=== PATIENT | female | born 1995 | race African-American/Black ===

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

== ENCOUNTER 2017-07-02 22:10 | Emergency (ER) | payer SELFPAY ==
[~2017-07-02 22:10] MED LIST changes: +ABIL10TA8 PO; -ARIP1TAB5 PO; +IBUP1TAB7 PO; -IBUP800T23 PO
[2017-07-02 22:28] VITALS: BP 128/78; PULSE 89; RESP 24; O2SAT 98
[2017-07-02] MEDS ORDERED: LORA-392 PO (23:45)
--- NOTE | 2017-07-02 23:47 | PD ---
HPI Chief Complaint: Anxiety Time Seen by Provider: 23:08 Travel History International Travel<30 days: No Contact w/Intl Traveler<30days: No Traveled to known affect area: No History of Present Illness HPI 22-year-old female arrives to the ER describing anxiety for the past day and a half. She has had anxiety previously. She denies drug or alcohol abuse. Patient reports experiencing lots of personal stress lately however does not explain any greater specifics. She denies suicidal/homicidal ideation. PFSH Past Medical History Anemia: Yes Bipolar Disorder: Yes Depression: Yes Diminished Hearing: No Psychiatric: Yes (PTSD) ?: Not Social History Alcohol Use: No Tobacco Use: No Substance Use: No (PT DENIES) Allergies-Medications (Allergen,Severity, Reaction): Coded Allergies: No Known Allergies (Unverified , 03/01/16) Reported Meds & Prescriptions Reported Meds & Active Scripts Active Ativan (Lorazepam) 0.5 Mg Tab 0.5 Mg PO Q6H PRN Tessalon Perles (Benzonatate) 100 Mg Cap 100 Mg PO TID PRN Ibuprofen 800 Mg Tab 800 Mg PO Q8H PRN Reported Prozac (Fluoxetine HCl) 20 Mg Cap 30 Mg PO DAILY Abilify (Aripiprazole) 10 Mg Tab 10 Mg PO DAILY Review of Systems Except as stated in HPI: all other systems reviewed are Neg Physical Exam Narrative GENERAL: A 22-year-old female pleasant well-nourished well-developed Vital Signs Date Time Temp Pulse Resp B/P (MAP) Pulse Ox O2 Delivery O2 Flow Rate FiO2 18 22:28 89 24 128/78 (95) 98 SKIN: Warm and dry. HEAD: Atraumatic. Normocephalic. EYES: Pupils equal and round. No scleral icterus. No injection or drainage. ENT: No nasal bleeding or discharge. Mucous membranes pink and moist. NECK: Trachea midline. No JVD. CARDIOVASCULAR: Regular rate and rhythm. RESPIRATORY: No accessory muscle use. Clear to auscultation. Breath sounds equal bilaterally. GASTROINTESTINAL: Abdomen soft, non-tender, nondistended. Hepatic and splenic margins not palpable. MUSCULOSKELETAL: Extremities without clubbing, cyanosis, or edema. No obvious deformities. NEUROLOGICAL: Awake and alert. No obvious cranial nerve deficits. Motor grossly within normal limits. Five out of 5 muscle strength in the arms and legs. Normal speech. PSYCHIATRIC: Cooperative. No suicidal or homicidal ideation. Data Data Last Documented VS Vital Signs Date Time Temp Pulse Resp B/P (MAP) Pulse Ox O2 Delivery O2 Flow Rate FiO2 07/02/17 22:28 89 24 128/78 (95) 98 Orders Orders Lorazepam (Ativan) (07/03/17 00:00) Ed Discharge Order (07/02/17 23:52) MDM Medical Decision Making Medical Screen Exam Complete: Yes Emergency Medical Condition: Yes Medical Record Reviewed: Yes Differential Diagnosis Anxiety, panic attack, paranoia Narrative Course Pt received ativan. No HI/SI. Follow up with outside psychiatry. Script as below. Diagnosis Primary Impression: Anxiety Referrals: Kevin Bustos MD call for appointment Med/Other Pt SpecificInfo: Prescription(s) given Scripts Lorazepam (Ativan) 0.5 Mg Tab 0.5 MG PO Q6H Y for ANXIETY AND/OR AGITATION, #12 TAB 0 Refills Prov: Howard Spencer MD 07/02/17 Disposition: 01 DISCHARGE HOME Condition: Stable Howard Spencer MD Jul 02, 2017 23:46
[2017-07-03] MEDS ORDERED: LORazepam 1 MG TAB PO ONE
== END 2017-07-03 | disposition home or self-care (01) ==
LOC: NEPD 22:10
DX: F41.9 Anxiety disorder, unspecified (principal); F43.9 Reaction to severe stress, unspecified; D64.9 Anemia, unspecified
CPT/HCPCS: 99283